=== PATIENT | female | born 1975 | race Caucasian/White ===

== ENCOUNTER → 2022-04-25 09:24 | Outpatient (REF) | payer BC, SELFPAY ==
[2022-04-25 10:25] LABS: % Basophils 0.9 % (0-2); % Immature Granulocytes 0.3 % (0-0.5); % Monocytes 8.1 % (1.7-9.3); % Neutrophils 60.7 % (42.2-75.2); Absolute Basophils 0.1 10^3/uL (0-0.2); Absolute Eosinophils 0.2 10^3/uL (0-0.7); Absolute Lymphocytes 2.1 10^3/uL (1.2-3.4); Absolute Monocytes 0.6 10^3/uL (0.1-0.6); Absolute Neutrophils 4.6 10^3/uL (1.4-6.5); Hematocrit 44.6 % (37.0-47.0); Hemoglobin 15.2 g/dL (12.0-16.0); Mean Corp Hgb Conc. 34.1 g/dL (33.0-37.0); Mean Corpuscular Hgb 29.6 pg (27.0-31.0); Mean Corpuscular Volume 86.8 fL (81.0-99.0); Mean Platelet Volume 8.9 fL (7.4-10.4); Nucleated Red Blood Cells % 0 %; Platelet Count 435 10^3/uL (130-400); Red Blood Cell Count 5.14 10^6/uL (4.20-5.40); Red Cell Dist. Width 13.8 % (11.5-14.5); White Blood Cell Count 7.6 10^3/uL (4.8-10.8)
[2022-04-25 11:21] LABS: ALT (SGPT) 23 U/L (0-35); AST (SGOT) 24 U/L (14-36); Albumin 4.9 g/dl (3.5-5.0); Alkaline Phosphatase 52 U/L (38-126); Blood Urea Nitrogen 16 mg/dl (7-17); Calcium 9.7 mg/dl (8.4-10.2); Carbon Dioxide 29 mmol/L (22-30); Chloride 98 mmol/L (98-107); Glomerular Filtration Rate > 60.0; Glucose 95 mg/dl (65-99); HDL Cholesterol 88 mg/dl; LDL Cholesterol, Calculated 89 mg/dl; Potassium 4.5 mmol/L (3.5-5.1); Sodium 137 mmol/L (135-145); Total Bilirubin 1.3 mg/dl (0.2-1.3); Total Cholesterol 189 mg/dl (50-199); Total Protein 8.2 g/dl (6.3-8.2); Triglyceride 60 mg/dl (10-149); Very Low Density Lipoprotein 12 mg/dl (0-30)
[2022-04-25 11:59] LABS: Vitamin D, 25-OH*** 37.6 ng/mL (30-80)
[2022-04-25 12:13] LABS: TSH Reflex To Free T4 2.14 uIU/ml (0.47-4.68)
[2022-04-25 14:40] LABS: Glycohemoglobin (HgbA1c) 5.2 % (4.0-5.6)
== END ==
LOC: REG 09:24
PROVIDERS: ATTENDING PHYSICIAN Nurse Practitioner Primary Care
DX: Z79.899 Other long term (current) drug therapy (principal); Z00.00 Encounter for general adult medical examination without abnormal findings; R53.83 Other fatigue; Z13.220 Encounter for screening for lipoid disorders; R73.01 Impaired fasting glucose; D50.0 Iron deficiency anemia secondary to blood loss (chronic)
CPT/HCPCS: 36415; 80053; 80061; 82306; 83036; 84443; 85025

== ENCOUNTER → 2024-07-08 10:04 | Outpatient (REF) | payer BC, SELFPAY ==
[2024-07-08 11:26] LABS: % Basophils 1.3 % (0-2); % Eosinophils 6.2 % (0-6); % Immature Granulocytes 0.4 % (0-0.5); % Lymphocytes 31.5 % (20.5-51.1); % Monocytes 7.9 % (1.7-9.3); % Neutrophils 52.7 % (42.2-75.2); Absolute Basophils 0.1 10^3/uL (0-0.2); Absolute Eosinophils 0.4 10^3/uL (0-0.7); Absolute Lymphocytes 2.1 10^3/uL (1.2-3.4); Absolute Monocytes 0.5 10^3/uL (0.1-0.6); Absolute Neutrophils 3.6 10^3/uL (1.4-6.5); Hematocrit 42.9 % (37.0-47.0); Hemoglobin 14.5 g/dL (12.0-16.0); Mean Corp Hgb Conc. 33.8 g/dL (33.0-37.0); Mean Corpuscular Volume 88.6 fL (81.0-99.0); Nucleated Red Blood Cells % 0 %; Platelet Count 316 10^3/uL (130-400); Red Blood Cell Count 4.84 10^6/uL (4.20-5.40); Red Cell Dist. Width 13.6 % (11.5-14.5); White Blood Cell Count 6.7 10^3/uL (4.8-10.8)
[2024-07-08 12:18] LABS: ALT (SGPT) 15 U/L (0-35); AST (SGOT) 17 U/L (14-36); Albumin 4.4 g/dl (3.5-5.0); Alkaline Phosphatase 44 U/L (38-126); Blood Urea Nitrogen 22 mg/dl (7-17); Calcium 9.5 mg/dl (8.4-10.2); Carbon Dioxide 25 mmol/L (22-30); Chloride 108 mmol/L (98-107); Glucose 95 mg/dl (70-99); HDL Cholesterol 78 mg/dl; LDL Cholesterol, Calculated 70 mg/dl; Potassium 4.4 mmol/L (3.5-5.1); Sodium 141 mmol/L (135-145); Total Cholesterol 160 mg/dl (50-199); Total Protein 7.4 g/dl (6.3-8.2); Triglyceride 64 mg/dl (10-149); Very Low Density Lipoprotein 12 mg/dl (0-30); eGFR > 60.00
[2024-07-08 12:56] LABS: FSH 3.1 mIU/ml; Luteinizing Hormone 4.32 mIU/ml
[2024-07-08 13:10] LABS: TSH Reflex To Free T4 1.16 uIU/ml (0.47-4.68)
[2024-07-08 13:11] LABS: Estradiol 91.8 pg/ml
[2024-07-08 13:32] LABS: Urine Albumin 1+ (Neg - Trace); Urine Bilirubin Negative (Negative); Urine Character Clear (Clear); Urine Color Yellow; Urine Glucose Negative (Negative); Urine Ketone Negative (Negative); Urine Leukocyte Negative (Negative); Urine Nitrite Negative (Negative); Urine Occult Blood 2+ (Negative); Urine Urobilinogen Negative (Neg - 1+); Urine pH 6.5 (5.0-9.0)
[2024-07-08 14:09] LABS: Urine Squamous Cell >30 /LPF (Few)
[2024-07-08 14:10] LABS: Urine Amorphous Seen
[2024-07-08 14:12] LABS: Urine Red Blood Cell 0-2 /HPF (0-2); Urine White Cell 0-2 /HPF (0-5)
== END ==
LOC: REG 10:04
PROVIDERS: ATTENDING PHYSICIAN Nurse Practitioner Family; FAMILY PHYSICIAN Internal Medicine
DX: R07.89 Other chest pain (principal); R09.81 Nasal congestion; J34.89 Other specified disorders of nose and nasal sinuses; F41.1 Generalized anxiety disorder; Z01.89 Encounter for other specified special examinations
CPT/HCPCS: 36415; 71046; 80053; 80061; 81003; 81015; 82670; 83001; 83002; 84443; 85025; 93005

== ENCOUNTER → 2024-08-11 09:33 | Outpatient (REF) | payer BC, SELFPAY ==
[2024-08-11 10:45] LABS: Urine Albumin Negative (Neg - Trace); Urine Bilirubin Negative (Negative); Urine Character Clear (Clear); Urine Color Yellow; Urine Glucose Negative (Negative); Urine Ketone Negative (Negative); Urine Leukocyte Negative (Negative); Urine Nitrite Negative (Negative); Urine Occult Blood Negative (Negative); Urine Urobilinogen Negative (Neg - 1+)
[2024-08-11 11:00] LABS: C-Reactive Protein < 5.00 mg/L (0.0-10.00)
[2024-08-11 11:27] LABS: Erythrocyte Sed Rate 14 mm/hour (0-20)
[2024-08-11 11:38] LABS: Microalbumin, Random Urine <0.6 mg/dl (0.6-1.7)
[2024-08-14 10:16] LABS: Albumin 4.24 g/dL (3.75-5.01); Alpha 1 Globulin 0.25 g/dL (0.19-0.46); Alpha 2 Globulin 0.65 g/dL (0.48-1.05); Free Kappa Light Chains,Quant 18.89 mg/L (3.30-19.40); IgA 256 mg/dL (68-408); IgG 1020 mg/dL (768-1632); IgM 99 mg/dL (35-263); Immunofixation Electrophoresis IFE Done; Kappa/Lambda Fr Light Ratio 1.46 (0.26-1.65)
== END ==
LOC: REG 09:33
PROVIDERS: ATTENDING PHYSICIAN Student in an Organized Health Care Education/Training Program; FAMILY PHYSICIAN Internal Medicine; REFERRING PHYSICIAN Nurse Practitioner Primary Care
DX: F10.90 Alcohol use, unspecified, uncomplicated (principal); I73.00 Raynaud's syndrome without gangrene; M25.531 Pain in right wrist; M25.532 Pain in left wrist; Z72.0 Tobacco use; R80.9 Proteinuria, unspecified
CPT/HCPCS: 36415; 81003; 82043; 82570; 82784; 83521; 84155; 84165; 85652; 86140; 86334

== ENCOUNTER → 2024-08-27 09:06 | Outpatient (REF) | payer BC, SELFPAY | LOC: EMG 09:06 | PROVIDERS: ATTENDING PHYSICIAN Nurse Practitioner Primary Care | DX: I73.00 Raynaud's syndrome without gangrene (principal); M25.531 Pain in right wrist; Z72.0 Tobacco use; Z12.31 Encounter for screening mammogram for malignant neoplasm of breast; R20.0 Anesthesia of skin | CPT/HCPCS: 77063; 77067; 95886; 95911 ==

== ENCOUNTER → 2024-09-02 09:19 | Outpatient (REF) | payer BC, SELFPAY | LOC: WDC 09:19 | PROVIDERS: ATTENDING PHYSICIAN Nurse Practitioner Primary Care | DX: R92.8 Other abnormal and inconclusive findings on diagnostic imaging of breast (principal) | CPT/HCPCS: 76642 ==

== ENCOUNTER → 2024-09-08 06:46 | Outpatient (REF) | payer BC, SELFPAY ==
--- NOTE | 2024-09-08 14:12 | OID.BR.INTR ---
[facility] Breast Navigator - Initial
- -
Date of Contact: 09/08/24
Met with patient. Patient given written information on navigator services available at [facility]. Will follow up as needed per protocol.
== END ==
LOC: WDC 06:46
PROVIDERS: ATTENDING PHYSICIAN Nurse Practitioner Primary Care
DX: N63.11 Unspecified lump in the right breast, upper outer quadrant (principal)
CPT/HCPCS: 88305; 19083; 88341; 88360; A4648

== ENCOUNTER → 2024-09-18 14:05 | Outpatient (REF) | payer BC, SELFPAY | LOC: WDC 14:05 | PROVIDERS: ATTENDING PHYSICIAN Nurse Practitioner Primary Care | DX: R92.30 Dense breasts, unspecified (principal) | CPT/HCPCS: 76641 ==